=== PATIENT | male | born 2000 | race Caucasian/White ===

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

== ENCOUNTER → 2021-01-08 | Outpatient (CLI) | payer BC ==
[2021-01-08 10:50] LABS: ALBUMIN 4.3 g/dL (3.5-5.0); POTASSIUM 4.4 mmol/L (3.5-5.1)
[2021-01-08 10:51] LABS: CALCIUM 9.5 mg/dL (8.3-10.5)
[2021-01-08 10:53] LABS: TOTAL PROTEIN 7.2 g/dL (6.4-8.3)
== END ==
LOC: LAB 09:58
PROVIDERS: Family Medicine
DX: F41.1 Generalized anxiety disorder (principal)

== ENCOUNTER → 2021-01-29 | Outpatient (REF) | LOC: LAB 09:35 | DX: Z01.89 Encounter for other specified special examinations (principal) ==